=== PATIENT | female | born 1950 | race Caucasian/White ===

== ENCOUNTER → 2016-11-29 | Outpatient (CLI) | payer MEDICARE, BC ==
--- NOTE | 2016-11-29 15:35 | XR ---
EXAMINATION TYPE: XR chest 2V DATE OF EXAM: 11/29/2016 3:22 PM COMPARISON: 06/01/2016 HISTORY: 66-year-old female costochondritis, painful respiration TECHNIQUE: Frontal and lateral views FINDINGS: The cardiomediastinal silhouette, aorta, and pulmonary vasculature are within normal limits. Similar strandy atelectasis at the left base. Otherwise, lungs and pleural spaces are clear. IMPRESSION: No acute cardiopulmonary process.
== END ==
LOC: RADXRMAIN 15:11
PROVIDERS: ATTEND Family Medicine
DX: M94.0 Chondrocostal junction syndrome [Tietze] (principal); R07.1 Chest pain on breathing
CPT/HCPCS: 71020

== ENCOUNTER → 2017-01-20 | Outpatient (CLI) | payer MEDICARE, BC ==
--- NOTE | 2017-01-20 11:40 | MM ---
Reason for exam: screening (asymptomatic). Last mammogram was performed 1 year and 1 month ago. History: Patient is postmenopausal. Physical Findings: A clinical breast exam by your physician is recommended on an annual basis and results should be correlated with mammographic findings. MG 3D Screening Mammo W/Cad Bilateral CC and MLO view(s) were taken. Prior study comparison: December 16, 2015, bilateral MG screening mammo w CAD. December 10, 2014, bilateral MG screening mammo w CAD. There are scattered fibroglandular densities. Finding: There are typically benign round calcifications in the left breast. There is no discrete abnormality. ASSESSMENT: Benign, BI-RAD 2 RECOMMENDATION: Routine screening mammogram of both breasts in 1 year.
== END | disposition home or self-care (01) ==
LOC: RADMAMWWP 07:29
PROVIDERS: ATTEND Family Medicine
DX: Z12.31 Encounter for screening mammogram for malignant neoplasm of breast (principal)
CPT/HCPCS: 77063; G0202

== ENCOUNTER 2017-06-30 19:48 | Emergency (ER) | payer MEDICARE, BC ==
[2017-06-30 20:04] VITALS: TEMP 97.4
[2017-06-30] MEDS ORDERED: SODIUM CHLORIDE 0.9% 1,000 ML IV STA (20:32)
[2017-06-30] MEDS ORDERED: SODIUM CHLORIDE 0.9% 500 ML IV STA (20:32)
--- NOTE | 2017-06-30 20:35 | ED ---
General Adult HPI - General Source: patient, RN notes reviewed Mode of arrival: ambulatory Limitations: no limitations <Dean Andrade - Last Filed: 06/30/17 20:33> <Colten Lira - Last Filed: 07/01/17 00:31> - General Chief complaint: Recheck/Abnormal Lab/Rx Stated complaint: Possible Med Reaction Time Seen by Provider: 06/30/17 20:31 - History of Present Illness Initial comments: This is a 67-year-old female who believes she may be having a reaction to a medication she took today. She took she took escitalopram have a 11 AM this morning she didn't have any bitemporal headache since then. Nausea generally just does not feel well she states her chest doesn't feel right she's had no palpitations no overt chest pain. No cough or other symptoms. She did recently have us infection of her sinusitis and urinary tract which she was treated for. No other complaints at this time this is a new medication she took 5 mg of this medication. (Dean Andrade) - Related Data Home Medications Medication Instructions Recorded Confirmed Levothyroxine Sodium [Synthroid] 25 mcg PO DAILY 06/01/16 06/30/17 Omeprazole 20 mg PO DAILY PRN 06/01/16 06/30/17 Multivitamins, Thera [Multivitamin 1 tab PO DAILY 08/03/16 06/30/17 (formulary)] Meclizine [Antivert] 12.5 mg PO TID PRN 06/30/17 06/30/17 Allergies Allergy/AdvReac Type Severity Reaction Status Date / Time amoxicillin [From Amoxil] Allergy Rash/Hives Verified 06/30/17 21:08 levofloxacin [From Levaquin] Allergy Rapid Verified 06/30/17 21:08 Heart Rate sulfamethoxazole Allergy Rash/Hives Verified 06/30/17 21:08 [From Bactrim] trimethoprim [From Bactrim] Allergy Rash/Hives Verified 06/30/17 21:08 Review of Systems ROS Other: All systems not noted in ROS Statement are negative. <Dean Andrade - Last Filed: 06/30/17 20:33> ROS Other: All systems not noted in ROS Statement are negative. <Colten Lira - Last Filed: 07/01/17 00:31> ROS Statement: Those systems with pertinent positive or pertinent negative responses have been documented in the HPI. Past Medical History Past Medical History: GERD/Reflux, Hyperlipidemia, Pneumonia, Thyroid Disorder Additional Past Medical History / Comment(s): DJD cervical spine, vertigo and cephalgia in past caused by cervical DJD, hiatal hernia, gastritis, UTI's, pleurisy, hemorrhoids. History of Any Multi-Drug Resistant Organisms: MRSA Date of last positivie culture/infection: 2011 MDRO Source:: abdomen Past Surgical History: Cholecystectomy, Hysterectomy, Tubal Ligation Additional Past Surgical History / Comment(s): EGD/colonoscopy Past Anesthesia/Blood Transfusion Reactions: Postoperative Nausea & Vomiting ( PONV) Past Psychological History: Anxiety, Depression Smoking Status: Never smoker Past Alcohol Use History: None Reported Past Drug Use History: None Reported - Past Family History Father Family Medical History: No Reported History Additional Family Medical History / Comment(s): Father lived to be 89yrs old. Mother Family Medical History: Respiratory Disorder Additional Family Medical History / Comment(s): Mother of pulmonary fibrosis at the age of 53yrs. <Dean Andrade - Last Filed: 06/30/17 20:33> General Exam Limitations: no limitations General appearance: alert, anxious Head exam: Present: atraumatic, normocephalic, normal inspection Eye exam: Present: normal appearance, PERRL, EOMI. Absent: scleral icterus, conjunctival injection, periorbital swelling ENT exam: Present: normal exam, mucous membranes moist Neck exam: Present: normal inspection. Absent: tenderness, meningismus, lymphadenopathy Respiratory exam: Present: normal lung sounds bilaterally. Absent: respiratory distress, wheezes, rales, rhonchi, stridor Cardiovascular Exam: Present: regular rate, normal rhythm, normal heart sounds. Absent: systolic murmur, diastolic murmur, rubs, gallop, clicks GI/Abdominal exam: Present: soft, normal bowel sounds. Absent: distended, tenderness, guarding, rebound, rigid Extremities exam: Present: normal inspection, full ROM, normal capillary refill. Absent: tenderness, pedal edema, joint swelling, calf tenderness Back exam: Present: normal inspection Neurological exam: Present: alert, oriented X3, CN II-XII intact Psychiatric exam: Present: normal affect, normal mood Skin exam: Present: warm, dry, intact, normal color. Absent: rash <Dean Andrade - Last Filed: 06/30/17 20:33> General appearance: alert, in no apparent distress, anxious Head exam: Present: atraumatic, normocephalic, normal inspection Eye exam: Present: normal appearance, PERRL, EOMI. Absent: scleral icterus, conjunctival injection, periorbital swelling ENT exam: Present: normal exam, mucous membranes moist Neck exam: Present: normal inspection. Absent: tenderness, meningismus, lymphadenopathy Respiratory exam: Present: normal lung sounds bilaterally. Absent: respiratory distress, wheezes, rales, rhonchi, stridor Cardiovascular Exam: Present: regular rate, normal rhythm, normal heart sounds. Absent: systolic murmur, diastolic murmur, rubs, gallop, clicks GI/Abdominal exam: Present: soft, normal bowel sounds. Absent: distended, tenderness, guarding, rebound, rigid Extremities exam: Present: normal inspection, full ROM, normal capillary refill. Absent: tenderness, pedal edema, joint swelling, calf tenderness Back exam: Present: normal inspection Neurological exam: Present: alert, oriented X3, CN II-XII intact Psychiatric exam: Present: normal affect, normal mood Skin exam: Present: warm, dry, intact, normal color. Absent: rash <Colten Lira - Last Filed: 07/01/17 00:31> - General Exam Comments Initial Comments: This a well-developed well-nourished awake alert anxious appearing female (Dean Andrade) Course <Dean Andrade - Last Filed: 06/30/17 20:33> <Colten Lira - Last Filed: 07/01/17 00:31> Vital Signs 06/30/17 19:58 Temperature 97.4 F L Pulse Rate 68 Respiratory 18 Rate Blood Pressure 147/74 O2 Sat by Pulse 97 Oximetry - Reevaluation(s) Reevaluation #1: 07/01/17 00:31 Spoke with patient and family regarding symptoms, this time patient feels comfortable going home, feels safe at home. Has no other complaints at this time (Colten Lira) EKG Findings - EKG Results: EKG: interpreted by ERMD, sinus rhythm (Sinus rhythm rate is 74. Interval 150 to QRS 86 daily since QTC 404/448 occasional unifocal PVCs. She does have this by history) <Dean Andrade - Last Filed: 06/30/17 20:33> Medical Decision Making <Dean Andrade - Last Filed: 06/30/17 20:33> - Lab Data Result diagrams: 06/30/17 20:49 06/30/17 20:49 <Colten Lria - Last Filed: 07/01/17 00:31> - Medical Decision Making 67 female to the ER with medication reaction, a recurrent reaction which is a retired patient takes medication. Patient does not chest without significant complaints or labwork is normal patient can be discharged home (Colten Lira) - Lab Data Lab Results 06/30/17 06/30/17 06/30/17 Range/Units 20:49 20:49 20:49 WBC 9.8 (3.8-10.6) k/uL RBC 4.30 (3.80-5.40) m/uL Hgb 13.0 (11.4-16.0) gm/dL Hct 39.7 (34.0-46.0) % MCV 92.5 (80.0-100.0) fL MCH 30.2 (25.0-35.0) pg MCHC 32.6 (31.0-37.0) g/dL RDW 12.9 (11.5-15.5) % Plt Count 250 (150-450) k/uL Neutrophils % 78 % Lymphocytes % 15 % Monocytes % 5 % Eosinophils % 1 % Basophils % 0 % Neutrophils # 7.6 (1.3-7.7) k/uL Lymphocytes # 1.4 (1.0-4.8) k/uL Monocytes # 0.5 (0-1.0) k/uL Eosinophils # 0.1 (0-0.7) k/uL Basophils # 0.0 (0-0.2) k/uL Sodium 139 (137-145) mmol/L Potassium 4.2 (3.5-5.1) mmol/L Chloride 107 (98-107) mmol/L Carbon Dioxide 24 (22-30) mmol/L Anion Gap 8 mmol/L BUN 14 (7-17) mg/dL Creatinine 0.79 (0.52-1.04) mg/dL Est GFR (MDRD) Af Amer >60 (>60 ml/min/1.73 sqM) Est GFR (MDRD) Non-Af >60 (>60 ml/min/1.73 sqM) Glucose 124 H (74-99) mg/dL Calcium 9.9 (8.4-10.2) mg/dL Magnesium 2.0 (1.6-2.3) mg/dL Total Bilirubin 0.3 (0.2-1.3) mg/dL AST 19 (14-36) U/L ALT 24 (9-52) U/L Alkaline Phosphatase 66 (38-126) U/L Total Creatine Kinase 65 (30-135) U/L CK-MB (CK-2) 0.5 (0.0-2.4) ng/mL CK-MB (CK-2) Rel Index 0.8 Total Protein 7.3 (6.3-8.2) g/dL Albumin 4.1 (3.5-5.0) g/dL Disposition <Dean Andrade - Last Filed: 06/30/17 20:33> <Colten Lira - Last Filed: 07/01/17 00:31> Clinical Impression: Weakness, Medication reaction Disposition: HOME SELF-CARE Condition: Good Instructions: Escitalopram (By mouth) Referrals: Dary Baxter MD [Primary Care Provider] - 1-2 days
[2017-06-30 20:59] LABS: Basophils % (A) 0 %; CHCM 33.6; Eosinophils # (A) 0.1 k/uL (0-0.7); Eosinophils % (A) 1 %; HCT 39.7 % (34.0-46.0); HDW 2.17; Luc # (Auto) 0.08; Luc % (Auto) 1; Lymphocytes # (A) 1.4 k/uL (1.0-4.8); Lymphocytes % (A) 15 %; MCH 30.2 pg (25.0-35.0); MCHC 32.6 g/dL (31.0-37.0); MCV 92.5 fL (80.0-100.0); Mean Platelet Volume 8.3; Monocytes # (A) 0.5 k/uL (0-1.0); Monocytes % (A) 5 %; Neutrophils # (A) 7.6 k/uL (1.3-7.7); Neutrophils % (A) 78 %; RDW 12.9 % (11.5-15.5); WBC 9.8 k/uL (3.8-10.6)
[2017-06-30 21:13] LABS: ALT 24 U/L (9-52); AST 19 U/L (14-36); Alkaline Phosphatase 66 U/L (38-126); Anion Gap 8 mmol/L; Blood Urea Nitrogen 14 mg/dL (7-17); Calcium 9.9 mg/dL (8.4-10.2); Carbon Dioxide 24 mmol/L (22-30); Chloride 107 mmol/L (98-107); Glucose 124 mg/dL (74-99); Non-African American GFR(MDRD) >60 (>60 ml/min/1.73 sqM); Potassium 4.2 mmol/L (3.5-5.1); Sodium 139 mmol/L (137-145); Total Bilirubin 0.3 mg/dL (0.2-1.3); Total Protein 7.3 g/dL (6.3-8.2)
--- NOTE | 2017-06-30 21:20 | XR ---
EXAMINATION TYPE: XR chest 2V DATE OF EXAM: 06/30/2017 HISTORY: cough. REFERENCE: Previous study dated 11/29/2016. FINDINGS: There is some scarring at the left lung base. The lungs are otherwise clear. Pleural space are clear. Heart size is upper limits of normal. IMPRESSION: NO ACUTE INTRATHORACIC ABNORMALITY.
[2017-06-30 21:29] LABS: Creatine Kinase MB 0.5 ng/mL (0.0-2.4)
[2017-07-01] MEDS ORDERED: SODIUM CHLORIDE 0.9% 1,000 ML IV STA (00:19)
[2017-07-01 01:17] VITALS: BP 142/78; PULSE 87; RESP 16
== END 2017-07-01 01:17 | disposition home or self-care (01) ==
LOC: EC 19:48
DX: R53.1 Weakness (principal); T43.295A Adverse effect of other antidepressants, initial encounter; R11.0 Nausea; K21.9 Gastro-esophageal reflux disease without esophagitis; E07.9 Disorder of thyroid, unspecified; Z79.899 Other long term (current) drug therapy; Z88.0 Allergy status to penicillin; Z88.1 Allergy status to other antibiotic agents
CPT/HCPCS: 36415; 71020; 80053; 82550; 82553; 83735; 85025; 93005; 96360; 96361; 99283

== ENCOUNTER 2017-09-05 11:08 | Observation (INO) | payer MEDICARE, BC ==
[2017-09-05] MEDS ORDERED: SODIUM CHLORIDE 0.9% 1,000 ML IV STA ×2 (12:06)
[2017-09-05] MEDS ORDERED: MAG HYDROX/AL HYDROX/SIMETH 30 ML, HYOSCYAMINE ELIXIR 10 ML, CIMETIDINE HCL 300 MG PO STA ×3 (12:07)
[2017-09-05] MEDS ORDERED: KETOROLAC 30 MG/ML 1 ML VIAL IVP STA (12:07)
[2017-09-05 12:20] LABS: Basophils % (A) 1 %; Eosinophils # (A) 0.2 k/uL (0-0.7); Eosinophils % (A) 4 %; HCT 39.4 % (34.0-46.0); HGB 13.2 gm/dL (11.4-16.0); Lymphocytes # (A) 1.6 k/uL (1.0-4.8); Lymphocytes % (A) 25 %; MCH 30.9 pg (25.0-35.0); MCHC 33.6 g/dL (31.0-37.0); MCV 91.9 fL (80.0-100.0); Mean Platelet Volume 8.2; Monocytes # (A) 0.4 k/uL (0-1.0); Monocytes % (A) 6 %; Neutrophils % (A) 63 %; Platelet Count 268 k/uL (150-450); RBC 4.29 m/uL (3.80-5.40); RDW 12.2 % (11.5-15.5); WBC 6.3 k/uL (3.8-10.6)
[2017-09-05 12:26] LABS: Appearance,Urine Clear (Clear); Bilirubin,Urine Negative (Negative); Blood,Urine Negative (Negative); Color,Urine Yellow; Glucose,Urine (UA) Negative (Negative); Ketones,Urine 1+ (Negative); Leukocyte Esterase,Urine Small (Negative); Mucus,Urine Occasional /hpf; Nitrite,Urine Negative (Negative); Protein,Urine Negative (Negative); RBC,Urine 1 /hpf (0-5); Specific Gravity,Urine 1.013 (1.001-1.035); Squamous Epithelial Cell,Urine <1 /hpf (0-4); Urobilinogen,Urine <2.0 mg/dL (<2.0); WBC,Urine 8 /hpf (0-5)
--- NOTE | 2017-09-05 12:30 | ED ---
Abdominal Pain HPI - General Chief Complaint: Abdominal Pain Stated Complaint: Abd Pain Time Seen by Provider: 09/05/17 11:08 Source: patient, family, EMS, RN notes reviewed Mode of arrival: EMS Limitations: no limitations - History of Present Illness Initial Comments: This is a 67-year-old female history of a cholecystectomy in 2010 who states she 's been having intermittent episodes of epigastric and right upper quadrant pain since June of this past year. He states because of the pain she's had decreased oral intake. She states food does make it worse. She has no personal history of ulcers but does have a family history. She denies any cough. She does have a history of urinary tract infections. She has no prior history of kidney stones. No other abdominal surgeries. She denies any overt fevers chills or sweats. Per barrel builder report the abdominal pains got worse over last 2 weeks she's had nausea no vomiting no diarrhea. Patient states the pain at times will radiate from the epigastrium to the right upper quadrant and down the abdomen. She also states she has no prior history of diverticulosis. She described the pain is burning mid epigastric pain. She currently is got mild pain. It does get moderate at times. MD Complaint: abdominal pain - Related Data Home Medications Medication Instructions Recorded Confirmed Levothyroxine Sodium [Synthroid] 25 mcg PO DAILY 06/01/16 09/05/17 Omeprazole 20 mg PO DAILY PRN 06/01/16 09/05/17 Multivitamins, Thera [Multivitamin 1 tab PO DAILY 08/03/16 09/05/17 (formulary)] Atorvastatin [Lipitor] 20 mg PO HS 09/05/17 09/05/17 Meclizine [Antivert] 25 mg PO TID PRN 09/05/17 09/05/17 Lewis-3 Fatty Acids/Fish Oil [Fish 1 cap PO DAILY 09/05/17 09/05/17 Oil 1,000 mg Softgel] Allergies Allergy/AdvReac Type Severity Reaction Status Date / Time amoxicillin [From Amoxil] Allergy Rash/Hives Verified 09/05/17 11:24 levofloxacin [From Levaquin] Allergy Rapid Verified 09/05/17 11:24 Heart Rate sulfamethoxazole Allergy Rash/Hives Verified 09/05/17 11:24 [From Bactrim] trimethoprim [From Bactrim] Allergy Rash/Hives Verified 09/05/17 11:24 Review of Systems ROS Statement: Those systems with pertinent positive or pertinent negative responses have been documented in the HPI. ROS Other: All systems not noted in ROS Statement are negative. Past Medical History Past Medical History: GERD/Reflux, Hyperlipidemia, Pneumonia, Thyroid Disorder Additional Past Medical History / Comment(s): DJD cervical spine, vertigo and cephalgia in past caused by cervical DJD, hiatal hernia, gastritis, UTI's, pleurisy, hemorrhoids. History of Any Multi-Drug Resistant Organisms: MRSA Date of last positivie culture/infection: 2011 MDRO Source:: abdomen Past Surgical History: Cholecystectomy, Hysterectomy, Tubal Ligation Additional Past Surgical History / Comment(s): EGD/colonoscopy Past Anesthesia/Blood Transfusion Reactions: Postoperative Nausea & Vomiting ( PONV) Past Psychological History: Anxiety, Depression Smoking Status: Never smoker Past Alcohol Use History: None Reported Past Drug Use History: None Reported - Past Family History Father Family Medical History: No Reported History Additional Family Medical History / Comment(s): Father lived to be 89yrs old. Mother Family Medical History: Respiratory Disorder Additional Family Medical History / Comment(s): Mother of pulmonary fibrosis at the age of 53yrs. General Exam - General Exam Comments Initial Comments: Is a well-developed well-nourished awake alert oriented 3 female Limitations: no limitations General appearance: alert, anxious Head exam: Present: atraumatic, normocephalic, normal inspection Eye exam: Present: normal appearance, PERRL, EOMI. Absent: scleral icterus, conjunctival injection, periorbital swelling ENT exam: Present: normal exam, mucous membranes moist Neck exam: Present: normal inspection. Absent: tenderness, meningismus, lymphadenopathy Respiratory exam: Present: normal lung sounds bilaterally. Absent: respiratory distress, wheezes, rales, rhonchi, stridor Cardiovascular Exam: Present: regular rate, normal rhythm, normal heart sounds. Absent: systolic murmur, diastolic murmur, rubs, gallop, clicks GI/Abdominal exam: Present: soft, tenderness (Epigastric tenderness palpation no guarding rebound masses or bruits), normal bowel sounds. Absent: distended, guarding, rebound, rigid Extremities exam: Present: normal inspection, full ROM, normal capillary refill. Absent: tenderness, pedal edema, joint swelling, calf tenderness Back exam: Present: normal inspection Neurological exam: Present: alert, oriented X3, CN II-XII intact Psychiatric exam: Present: normal affect, normal mood Skin exam: Present: warm, dry, intact, normal color. Absent: rash Course Vital Signs 09/05/17 09/05/17 11:11 12:23 Temperature 98.0 F Pulse Rate 86 97 Respiratory 18 18 Rate Blood Pressure 169/85 135/76 O2 Sat by Pulse 95 98 Oximetry - Reevaluation(s) Reevaluation #1: 09/05/17 13:36 Patient does say she gets some relief with the medication given for her stomach. She does still feel somewhat lightheaded however. She remains very anxious. Reevaluation #2: 09/05/17 14:45 The patient persists in having burning right upper quadrant pain is not reproducible on palpation. Thus far EKG and lab work is demonstrating no acute processes. I did discuss the final of nitroglycerin with the patient she has refused to have that at this time area she does still complain of the mild right upper quadrant pain also a headache and some dizziness. She did receive IV fluids was just seemed to help somewhat a GI cocktail did seem to help also. At this time the exact etiology is undetermined. Patient does however appear to be very anxious and does admit this also. Medical Decision Making - Medical Decision Making I did discuss the case with Dr. Contreras patient will be admitted for further evaluation. - Lab Data Result diagrams: 09/05/17 11:23 09/05/17 11:23 Lab Results 09/05/17 09/05/17 09/05/17 Range/Units 11:23 11:23 11:23 WBC 6.3 (3.8-10.6) k/uL RBC 4.29 (3.80-5.40) m/uL Hgb 13.2 (11.4-16.0) gm/dL Hct 39.4 (34.0-46.0) % MCV 91.9 (80.0-100.0) fL MCH 30.9 (25.0-35.0) pg MCHC 33.6 (31.0-37.0) g/dL RDW 12.2 (11.5-15.5) % Plt Count 268 (150-450) k/uL Neutrophils % 63 % Lymphocytes % 25 % Monocytes % 6 % Eosinophils % 4 % Basophils % 1 % Neutrophils # 4.0 (1.3-7.7) k/uL Lymphocytes # 1.6 (1.0-4.8) k/uL Monocytes # 0.4 (0-1.0) k/uL Eosinophils # 0.2 (0-0.7) k/uL Basophils # 0.0 (0-0.2) k/uL Sodium 139 (137-145) mmol/L Potassium 4.2 (3.5-5.1) mmol/L Chloride 106 (98-107) mmol/L Carbon Dioxide 21 L (22-30) mmol/L Anion Gap 12 mmol/L BUN 14 (7-17) mg/dL Creatinine 0.80 (0.52-1.04) mg/dL Est GFR (MDRD) Af Amer >60 (>60 ml/min/1.73 sqM) Est GFR (MDRD) Non-Af >60 (>60 ml/min/1.73 sqM) Glucose 95 (74-99) mg/dL Calcium 9.7 (8.4-10.2) mg/dL Magnesium 1.9 (1.6-2.3) mg/dL Total Bilirubin 0.4 (0.2-1.3) mg/dL AST 25 (14-36) U/L ALT 26 (9-52) U/L Alkaline Phosphatase 67 (38-126) U/L Total Creatine Kinase 58 (30-135) U/L CK-MB (CK-2) <0.2 (0.0-2.4) ng/mL CK-MB (CK-2) Rel Index Troponin I <0.012 (0.000-0.034) ng/mL Total Protein 7.2 (6.3-8.2) g/dL Albumin 4.3 (3.5-5.0) g/dL Amylase 101 (30-110) U/L Lipase 109 (23-300) U/L Urine Color Urine Appearance (Clear) Urine pH (5.0-8.0) Ur Specific [place] (1.001-1.035) Urine Protein (Negative) Urine Glucose (UA) (Negative) Urine Ketones (Negative) Urine Blood (Negative) Urine Nitrite (Negative) Urine Bilirubin (Negative) Urine Urobilinogen (<2.0) mg/dL Ur Leukocyte Esterase (Negative) Urine RBC (0-5) /hpf Urine WBC (0-5) /hpf Ur Squamous Epith Cells (0-4) /hpf Urine Mucus (None) /hpf 09/05/17 Range/Units 11:23 WBC (3.8-10.6) k/uL RBC (3.80-5.40) m/uL Hgb (11.4-16.0) gm/dL Hct (34.0-46.0) % MCV (80.0-100.0) fL MCH (25.0-35.0) pg MCHC (31.0-37.0) g/dL RDW (11.5-15.5) % Plt Count (150-450) k/uL Neutrophils % % Lymphocytes % % Monocytes % % Eosinophils % % Basophils % % Neutrophils # (1.3-7.7) k/uL Lymphocytes # (1.0-4.8) k/uL Monocytes # (0-1.0) k/uL Eosinophils # (0-0.7) k/uL Basophils # (0-0.2) k/uL Sodium (137-145) mmol/L Potassium (3.5-5.1) mmol/L Chloride (98-107) mmol/L Carbon Dioxide (22-30) mmol/L Anion Gap mmol/L BUN (7-17) mg/dL Creatinine (0.52-1.04) mg/dL Est GFR (MDRD) Af Amer (>60 ml/min/1.73 sqM) Est GFR (MDRD) Non-Af (>60 ml/min/1.73 sqM) Glucose (74-99) mg/dL Calcium (8.4-10.2) mg/dL Magnesium (1.6-2.3) mg/dL Total Bilirubin (0.2-1.3) mg/dL AST (14-36) U/L ALT (9-52) U/L Alkaline Phosphatase (38-126) U/L Total Creatine Kinase (30-135) U/L CK-MB (CK-2) (0.0-2.4) ng/mL CK-MB (CK-2) Rel Index Troponin I (0.000-0.034) ng/mL Total Protein (6.3-8.2) g/dL Albumin (3.5-5.0) g/dL Amylase (30-110) U/L Lipase (23-300) U/L Urine Color Yellow Urine Appearance Clear (Clear) Urine pH 5.0 (5.0-8.0) Ur Specific [place] 1.013 (1.001-1.035) Urine Protein Negative (Negative) Urine Glucose (UA) Negative (Negative) Urine Ketones 1+ H (Negative) Urine Blood Negative (Negative) Urine Nitrite Negative (Negative) Urine Bilirubin Negative (Negative) Urine Urobilinogen <2.0 (<2.0) mg/dL Ur Leukocyte Esterase Small H (Negative) Urine RBC 1 (0-5) /hpf Urine WBC 8 H (0-5) /hpf Ur Squamous Epith Cells <1 (0-4) /hpf Urine Mucus Occasional H (None) /hpf - EKG Data -: EKG Interpreted by Me EKG shows normal: sinus rhythm, axis, intervals, QRS complexes, ST-T waves (EKG done at the time of evaluation showed a normal sinus rhythm of 82. Interval 148 QRS duration 86 QT since QTC of/[address]-T wave changes.) Rate: normal - Radiology Data Radiology results: report reviewed (I did review the imaging and report no acute findings.), image reviewed Disposition Clinical Impression: Atypical chest pain, Abdominal pain Disposition: ADMITTED IP TO THIS [facility] Condition: Stable Referrals: Dary Baxter MD [Primary Care Provider] - 1-2 days
[2017-09-05 12:32] LABS: ALT 26 U/L (9-52); AST 25 U/L (14-36); Albumin 4.3 g/dL (3.5-5.0); Alkaline Phosphatase 67 U/L (38-126); Amylase 101 U/L (30-110); Anion Gap 12 mmol/L; Blood Urea Nitrogen 14 mg/dL (7-17); Calcium 9.7 mg/dL (8.4-10.2); Carbon Dioxide 21 mmol/L (22-30); Chloride 106 mmol/L (98-107); Glucose 95 mg/dL (74-99); Lipase 109 U/L (23-300); Magnesium 1.9 mg/dL (1.6-2.3); Potassium 4.2 mmol/L (3.5-5.1); Sodium 139 mmol/L (137-145); Total Bilirubin 0.4 mg/dL (0.2-1.3); Total Protein 7.2 g/dL (6.3-8.2)
--- NOTE | 2017-09-05 12:42 | XR ---
EXAMINATION TYPE: XR chest 2V DATE OF EXAM: 09/05/2017 COMPARISON: 06/30/2017 HISTORY: Shortness of breath TECHNIQUE: Frontal and lateral views of the chest are obtained. FINDINGS: Scattered senescent parenchymal changes noted. Hyperinflation compatible with COPD. No evidence for infiltrate. No evidence for atelectasis. Heart size is stable. Mediastinal structures are stable and grossly unremarkable. No evidence for hilar prominence. Degenerative changes dorsal spine. IMPRESSION: 1. No evidence for acute pulmonary disease.
--- NOTE | 2017-09-05 12:43 | XR ---
EXAMINATION TYPE: XR KUB DATE OF EXAM: 09/05/2017 COMPARISON: NONE HISTORY: Pain TECHNIQUE: Single supine KUB image of the abdomen is obtained FINDINGS: Small bowel demonstrates no evidence for dilatation or air fluid levels. Gas and fecal material is seen in non-distended colon. No convincing evidence for pneumoperitoneum. No unusual calcifications. The lung bases are clear. The osseous structures are intact. IMPRESSION: 1. Overall nonobstructive bowel gas pattern.
[2017-09-05 12:51] LABS: Creatine Kinase 58 U/L (30-135)
[2017-09-05 13:04] LABS: Creatine Kinase MB <0.2 ng/mL (0.0-2.4); Troponin I <0.012 ng/mL (0.000-0.034)
[2017-09-05] MEDS ORDERED: FAMOTIDINE 20 MG/2 ML VIAL IV STA (13:36)
[2017-09-05] MEDS ORDERED: ACETAMINOPHEN TAB 325 MG TAB PO PRN (14:48)
[2017-09-05] MEDS ORDERED: NALOXONE 0.4 MG/ML 1 ML VIAL IV PRN (14:48)
[2017-09-05] MEDS ORDERED: PANTOPRAZOLE 40 MG TABLET PO PRN (14:52)
[2017-09-05] MEDS ORDERED: MECLIZINE 25 MG TAB PO PRN (14:52)
[2017-09-05] MEDS ORDERED: SODIUM CHLORIDE 0.9% 1,000 ML IV SCH (15:00)
[2017-09-05] MEDS ORDERED: MELATONIN 3 MG TABLET PO PRN (15:38)
[2017-09-05] MEDS ORDERED: MORPHINE SULFATE 2 MG/ML SYRINGE IV PRN (15:38)
[2017-09-05] MEDS ORDERED: ONDANSETRON 4 MG/2 ML VIAL IVP PRN (15:38)
[2017-09-05] MEDS ORDERED: RX INFO: IV CONTRAST WAS GIVEN 1 EACH MISC MISCELLANE PRN (15:42)
--- NOTE | 2017-09-05 16:01 | P.HPIM ---
History of Present Illness H&P Date: 09/05/17 Chief Complaint: abdominal pain Patient is a 67-year-old female with a past medical history of hypothyroidism, GERD, vertigo, dyslipidemia, and prior peptic ulcer who presented to the emergency department with right upper quadrant and chest pain. In the ER she underwent an extensive evaluation. Her initial troponin, vital signs, and EKG were within normal limits. Initial laboratory analysis was unremarkable. Urine was negative. She was given a GI cocktail which seemed to help relieve the epigastric pain but she still had some pain in her right lower quadrant. She was also given a dose of IV Pepcid, Toradol, and normal saline. Per the ED physician she had + orthostatic vitals after 1L of fluid. She did not have resolution of her pain and there was concern for possible cardiac etiology and therefore she was requested to be admitted under observation. Patient seen and examined at bedside. She reports that she's having intermittent abdominal pain since June 2017 during this period it has started and stopped 2 other times. This time it started ever weeks ago. She describes the pain as an epigastric burning that radiates to her right upper quadrant and right lower quadrant, it is intermittent. She states that is worse with eating and better without eating. She reports having a peptic ulcer several years ago she believes over 10. This is been associated with nausea for the last 2 weeks but no vomiting. Her appetite has been low. She states she has been not eating much and therefore has not had a good bowel movement in 2 weeks. She reports taking Tylenol for the pain which seemed to relieve it. This is also associated with generalized body aches. She reports increased anxiety due to several family members health issues. Today she started having some chest heaviness and feeling winded with thinking about every one with cancer. She also felt presyncopal yesterday at [facility] when discovering another person she knows has cancer. She also complains of a headache which she states is not unusual for her. She believes that she has had some weight loss. She reports that she has overall felt fatigued. She is being another appointment with Dr. Baxter but felt too sick to attend, and she had an appointment for this coming up . She has not had a colonoscopy in over 10 years. She states that she was told 26 years ago she had the start of a hiatal hernia. She denies any blood in her stools. She has otherwise been her normal self. She denies any recent cough, cold, fever, flu, or dysuria. 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 History of Any Multi-Drug Resistant Organisms: MRSA Date of last positivie culture/infection: 2011 MDRO Source:: abdomen Past Surgical History: Cholecystectomy, Hysterectomy, Tubal Ligation Additional Past Surgical History / Comment(s): EGD/colonoscopy Past Anesthesia/Blood Transfusion Reactions: Postoperative Nausea & Vomiting ( PONV) Past Psychological History: Anxiety, Depression Smoking Status: Never smoker Past Alcohol Use History: None Reported Past Drug Use History: None Reported Additional History: Lives alone, no assistive devices - Past Family History Father Family Medical History: No Reported History Additional Family Medical History / Comment(s): Father lived to be 89yrs old. Mother Family Medical History: Respiratory Disorder Additional Family Medical History / Comment(s): Mother of pulmonary fibrosis at the age of 53yrs. Brother(s) Additional Family Medical History / Comment(s): pulmonry fibrosis s/p double lung transplant Medications and Allergies Home Medications Medication Instructions Recorded Confirmed Type Levothyroxine Sodium [Synthroid] 25 mcg PO DAILY 06/01/16 09/05/17 History Omeprazole 20 mg PO DAILY PRN 06/01/16 09/05/17 History Multivitamins, Thera [Multivitamin 1 tab PO DAILY 08/03/16 09/05/17 History (formulary)] Atorvastatin [Lipitor] 20 mg PO HS 09/05/17 09/05/17 History Meclizine [Antivert] 25 mg PO TID PRN 09/05/17 09/05/17 History [place]-3 Fatty Acids/Fish Oil [Fish 1 cap PO DAILY 09/05/17 09/05/17 History Oil 1,000 mg Softgel] Allergies Allergy/AdvReac Type Severity Reaction Status Date / Time amoxicillin [From Amoxil] Allergy Rash/Hives Verified 09/05/17 11:24 levofloxacin [From Levaquin] Allergy Rapid Verified 09/05/17 11:24 Heart Rate sulfamethoxazole Allergy Rash/Hives Verified 09/05/17 11:24 [From Bactrim] trimethoprim [From Bactrim] Allergy Rash/Hives Verified 09/05/17 11:24 Physical Exam Osteopathic Statement: *. No significant issues noted on an osteopathic structural exam other than those noted in the History and Physical/Consult. Vitals: Vital Signs Temp Pulse Pulse Pulse Pulse Resp BP 09/05/17 14:44 78 89 81 09/05/17 12:23 97 18 135/76 09/05/17 11:11 98.0 F 86 18 169/85 BP BP BP Pulse Ox 09/05/17 14:44 149/64 126/60 166/75 09/05/17 12:23 98 09/05/17 11:11 95 Intake and Output 09/05/17 09/05/17 09/05/17 06:59 14:59 22:59 Other: Weight 67.132 kg Patient Weight 09/06/17 06:59 Weight 67.132 kg General: Ill appearing, no distress, appears at stated age, normal weight Derm: no unusual rashes/lesions no unusual ecchymoses, warm, dry Head: atraumatic, normocephalic, symmetric Eyes: EOMI, no lid lag, anicteric sclera, pupils equal round reactive to light ENT: Nose and ears atraumatic, no thrush, no pharyngeal erythema Neck: No thyromegaly, no cervical lymphadenopathy, trachea midline, supple Mouth: no lip lesion, mucus membranes moist Cardiovascular: S1S2 reg, no murmur, positive posterior tibial pulse bilateral, no edema, capillary refill less than 2 seconds Lungs: CTA bilateral, no rhonchi, no rales , no accessory muscle use Abdominal: soft, tender to palpation epigastric, no guarding, no appreciable organomegaly, normal bowel sounds Ext: no gross muscle atrophy, muscle strength 5 out of 5 in all 4 extremities grossly, no contractures, Neuro: CN II-XI grossly intact, light touch intact all 4 extremities, finger to nose within normal limits, Psych: Alert, oriented, anxious and tearful Results CBC & Chem 7: 09/05/17 11:23 09/05/17 11:23 Labs: Abnormal Lab Results - Last 24 Hours (Table) 09/05/17 09/05/17 Range/Units 11:23 11:23 Carbon Dioxide 21 L (22-30) mmol/L Urine Ketones 1+ H (Negative) Ur Leukocyte Esterase Small H (Negative) Urine WBC 8 H (0-5) /hpf Urine Mucus Occasional H (None) /hpf Comments: EKG is reviewed by me reveals normal sinus rhythm, normal axis, normal intervals , and no significant ST-T wave changes. Thrombosis Risk Factor Assmnt - DVT/VTE Prophylaxis DVT/VTE Prophylaxis: Low risk, early ambulation encouraged Assessment and Plan Assessment: Abdominal pain -Concern for gastritis/ulcer/H Pylori/ hiatal hernia/ mass/ doubt angina equilivant - protonix IV - GI consult - CT abdomen and pelvis - NPO after midnight for GI eval - Pain control - tele, serial troponin, ASA + Orthostatic vitals - IVF - repeat in AM Anxiety - continue counseling - prn xanax - outpatient eval with Dr Baxter for additional meds HLD - hold statin due to nausea. Hypothyroidism - check TSH - synthroid Chronic hiatal hernia cervical spine disease vertigo Headaches insomnia Surrogate decision-maker: Daughter- Marivel CODE STATUS:Full, organ donor DVT prophylaxis: SCDd Discussed with: Patient Anticipated discharge: 24- [address]: home A total of 65 minutes was spent on the care of this complex patient more than 50 % of the time was spent in counseling and care coordination.
[2017-09-05] MEDS: IOHEXOL 350 MG/ML 25 ML BOTTLE (ORAL USE) PO PRN ×2 (16:33→17:42)
[2017-09-05 17:29] LABS: Creatine Kinase 56 U/L (30-135)
[2017-09-05 17:42] LABS: Creatine Kinase MB 0.3 ng/mL (0.0-2.4); Troponin I <0.012 ng/mL (0.000-0.034)
[2017-09-05] MEDS: PANTOPRAZOLE 40 MG/10 ML VIAL IV SCH (18:04)
--- NOTE | 2017-09-05 21:28 | CT ---
EXAMINATION TYPE: CT abdomen pelvis w con DATE OF EXAM: 09/05/2017 COMPARISON: CT 10/07/2011 HISTORY: Abdominal pain. CT DLP: 720.9 mGycm Automated exposure control for dose reduction was used. TECHNIQUE: Helical acquisition of images was performed from the lung bases through the pelvis. CONTRAST: Performed with Oral Contrast and with IV Contrast, patient injected with 100 mL of Omnipaque 300. FINDINGS: LUNG BASES: No significant abnormality is appreciated. LIVER/GB: No significant abnormality is appreciated. PANCREAS: No significant abnormality is seen. SPLEEN: No significant abnormality is seen. ADRENALS: No significant abnormality is seen. KIDNEYS: No significant abnormality is seen. FREE AIR: No free air is visualized. RETROPERITONEAL ADENOPATHY: None visualized REPRODUCTIVE ORGANS: No significant abnormality is seen URINARY BLADDER: No significant abnormality is seen. PELVIC ADENOPATHY: None visualized. OSSEOUS STRUCTURES: No significant abnormality is seen. BOWEL: No significant abnormality is seen. VASCULATURE: Unremarkable. IMPRESSION: NO ACUTE PROCESS.
[2017-09-05] MEDS: HYDROcodone/APAP 5-325MG 1 EACH TAB PO PRN (21:41)
[2017-09-05] MEDS: ATORVASTATIN 20 MG TAB PO SCH (21:42)
[2017-09-05] MEDS: ALPRAZolam 0.25 MG TAB PO PRN (21:42)
[2017-09-06 01:11] LABS: Creatine Kinase 64 U/L (30-135)
[2017-09-06 01:23] LABS: Creatine Kinase MB 0.3 ng/mL (0.0-2.4); Troponin I <0.012 ng/mL (0.000-0.034)
[2017-09-06 05:27] LABS: Cholesterol 176 mg/dL (<200); HDL Cholesterol 45 mg/dL (40-60); LDL Cholesterol,Calculated 95 mg/dL (0-99); Triglycerides 178 mg/dL (<150)
[2017-09-06] MEDS: PANTOPRAZOLE 40 MG/10 ML VIAL IV SCH (08:58)
[2017-09-06] MEDS: LEVOTHYROXINE 25 MCG TAB PO SCH (08:58)
[2017-09-06] MEDS ORDERED: NON-FORMULARY DRUG (Omega-3 Fatty Acids/Fish Oil [Fish Oil 1,000 Mg Softgel] 1 CAP) PO SCH (09:00)
--- NOTE | 2017-09-06 09:46 | P.CONS ---
History of Present Illness - Reason for Consult Consult date: 09/06/17 Epigastric abdominal pain Requesting physician: Chely Snow - History of Present Illness 67-year-old female patient of Dr. Baxter with a past medical history of peptic ulcer disease approximately 40 years ago, cholecystectomy, GERD maintained on PPI for several years, hyperlipidemia, vertigo, anxiety, depression, cephalgia. Patient admitted with a 2 month history of persistent epigastric right upper quadrant discomfort without nausea. Denies hematemesis hematochezia melena fever or chills. No history of this type of pain. Pain is described as a burning sensation most in the right upper quadrant. No change in bowel habits. 4 pound weight loss over last week secondary to decreased appetite. No NSAIDs or alcohol. No recent EGD. Colonoscopy more than 10 years ago to her memory possible polyp removal and hemorrhoids. Patient is unsure of her cholecystectomy was secondary to gallstones or not. CT unremarkable findings to support presenting symptoms. Hemoglobin 13.2. White count 6.3. Platelet 268. LFTs within normal limits. Lipase 109. Hemoccult stool negative. Review of Systems Constitutional: Denies fever, chills, sweats, weight gain, or loss. HEENT: Negative for migraines, blurred vision or loss, earaches, drainage, tinnitus, oral mucosal lesions, dysphagia, or odynophagia. CARDIAC: Hyperlipidemia. Negative for chest pain, arrhythmias, or palpitation. RESPIRATORY: Negative for shortness of breath, hemoptysis, cough, or sputum production. GI: See HPI for pertinent findings. : Negative for hematuria, urgency, frequency, polyuria, or dysuria. GYNc: Negative vaginal discharge. MUSCULOSKELETAL: Negative for muscle aches, swelling, arthritis, and arthralgias. NEUROLOGIC: Negative for stroke or TIA. ENDOCRINE: Negative for thyroid problems. SKIN: MRSA. Negative for rash or itching. PSYCHIATRIC: Anxiety. Depression. Past Medical History Past Medical History: GERD/Reflux, Hyperlipidemia, Pneumonia, Thyroid Disorder Additional Past Medical History / Comment(s): DJD cervical spine, vertigo and cephalgia in past caused by cervical DJD, hiatal hernia, gastritis, UTI's, pleurisy, hemorrhoids. History of Any Multi-Drug Resistant Organisms: MRSA Year Discovered:: 2011 MDRO Source:: abdomen Past Surgical History: Cholecystectomy, Hysterectomy, Tubal Ligation Additional Past Surgical History / Comment(s): EGD/colonoscopy Past Anesthesia/Blood Transfusion Reactions: Postoperative Nausea & Vomiting ( PONV) Additional Past Anesthesia/Blood Transfusion Reaction / Comm: clausterphobia Past Psychological History: Anxiety, Depression Smoking Status: Never smoker Past Alcohol Use History: None Reported Past Drug Use History: None Reported - Past Family History Father Family Medical History: No Reported History Additional Family Medical History / Comment(s): Father lived to be 89yrs old. Mother Family Medical History: Respiratory Disorder Additional Family Medical History / Comment(s): Mother of pulmonary fibrosis at the age of 53yrs. Brother(s) Additional Family Medical History / Comment(s): pulmonry fibrosis s/p double lung transplant Medications and Allergies Home Medications Medication Instructions Recorded Confirmed Type Levothyroxine Sodium [Synthroid] 25 mcg PO DAILY 06/01/16 09/05/17 History Omeprazole 20 mg PO DAILY PRN 06/01/16 09/05/17 History Multivitamins, Thera [Multivitamin 1 tab PO DAILY 08/03/16 09/05/17 History (formulary)] Atorvastatin [Lipitor] 20 mg PO HS 09/05/17 09/05/17 History Meclizine [Antivert] 25 mg PO TID PRN 09/05/17 09/05/17 History [place]-3 Fatty Acids/Fish Oil [Fish 1 cap PO DAILY 09/05/17 09/05/17 History Oil 1,000 mg Softgel] Allergies Allergy/AdvReac Type Severity Reaction Status Date / Time amoxicillin [From Amoxil] Allergy Rash/Hives Verified 09/05/17 11:24 levofloxacin [From Levaquin] Allergy Rapid Verified 09/05/17 11:24 Heart Rate sulfamethoxazole Allergy Rash/Hives Verified 09/05/17 11:24 [From Bactrim] trimethoprim [From Bactrim] Allergy Rash/Hives Verified 09/05/17 11:24 Physical Exam Vitals: Vital Signs Temp Pulse Pulse Pulse Pulse Pulse Resp 09/06/17 07:54 98.6 F 59 L 16 09/06/17 04:00 97.9 F 60 18 09/06/17 00:00 97.9 F 60 18 09/05/17 20:00 18 09/05/17 19:33 98.0 F 71 18 09/05/17 16:49 97.9 F 78 16 09/05/17 15:45 98.7 F 74 18 09/05/17 14:44 78 89 81 09/05/17 12:23 97 18 09/05/17 11:11 98.0 F 86 18 BP BP BP BP BP Pulse Ox 09/06/17 07:54 116/61 95 09/06/17 04:00 101/59 93 L 09/06/17 00:00 107/59 94 L 09/05/17 20:00 09/05/17 19:33 132/77 95 09/05/17 16:49 165/75 09/05/17 15:45 137/72 98 09/05/17 14:44 149/64 126/60 166/75 09/05/17 12:23 135/76 98 09/05/17 11:11 169/85 95 Intake and Output 09/05/17 09/06/17 09/06/17 22:59 06:59 14:59 Intake Total 240 Balance 240 Intake: Oral 240 Other: Voiding Method Toilet Toilet Toilet # Voids 1 Weight 65.3 kg 65.3 kg General appearance: The patient is alert, oriented, in no acute distress. HET: Head is normocephalic and atraumatic. Pupils are equal and reactive. Oropharynx is clear without lesions. Neck: Supple without lymphadenopathy. Trachea midline. Heart: S1 S2. Regular rate and rhythm. Lungs: No crackles or wheezes are heard. Abdomen: Soft, midepigastric right upper quadrant tenderness, nondistended with bowel sounds. No peritoneal signs. No palpable organomegaly or masses. Extremities: Normal skin color and turgor. No cyanosis, rash, ulceration, clubbing, or edema. Radial and pedal pulses are 2/4 bilaterally. Neurological: No focal deficits. Strength and sensation are grossly intact. Results CBC & Chem 7: 09/05/17 11:23 09/05/17 11:23 Labs: Abnormal Lab Results - Last 24 Hours (Table) 09/05/17 09/05/17 09/05/17 Range/Units 11:23 11:23 11:23 Carbon Dioxide 21 L (22-30) mmol/L Triglycerides 178 H (<150) mg/dL Urine Ketones 1+ H (Negative) Ur Leukocyte Esterase Small H (Negative) Urine WBC 8 H (0-5) /hpf Urine Mucus Occasional H (None) /hpf CT scan - abdomen: report reviewed (Dr. Felix) Assessment and Plan (1) Epigastric pain Narrative/Plan: Possible peptic ulcer disease. Current Visit: Yes Status: Acute Code(s): R10.13 - EPIGASTRIC PAIN SNOMED Code(s): 69212250 (2) Right upper quadrant pain Current Visit: Yes Status: Acute Code(s): R10.11 - RIGHT UPPER QUADRANT PAIN SNOMED Code(s): 757140779 (3) History of cholecystectomy Current Visit: Yes Status: Resolved Code(s): Z98.890 - OTHER SPECIFIED POSTPROCEDURAL STATES; Z90.49 - ACQUIRED ABSENCE OF OTHER SPECIFIED PARTS OF DIGESTIVE TRACT SNOMED Code(s): 906791712 (4) History of gastroesophageal reflux (GERD) Current Visit: Yes Status: Chronic Code(s): Z87.19 - PERSONAL HISTORY OF OTHER DISEASES OF THE DIGESTIVE SYSTEM SNOMED Code(s): 31246560481490 (5) History of peptic ulcer disease Current Visit: Yes Status: Resolved Code(s): Z87.11 - PERSONAL HISTORY OF PEPTIC ULCER DISEASE SNOMED Code(s): 692671430 Plan: 1. Based on patient's presenting symptoms for the last 2 months will proceed with upper endoscopy/EGD today. Based on endoscopy findings further direction will be advised. PPI daily. Nothing by mouth except medications. We'll follow closely with you. The scientific recruiter has discussed the risks, benefits and alternative therapies for the above-mentioned procedure and for both sedation/analgesia as well as necessary blood product administration, if indicated, as they pertain to this patient. The patient has indicated understanding and acceptance of the risks and procedures discussed. Thank you for this kind referral and the opportunity to participate in the care of your patient. This consultation was discussed with Dr. Felix. The impression and plan of care have been directed as dictated.
[2017-09-06] MEDS ORDERED: MULTIVITAMINS, THERA 1 EACH TAB PO SCH (12:00)
[2017-09-06 13:50] VITALS: BMI 23.9
[2017-09-06] MEDS ORDERED: PROPOFOL 10 MG/ML 20 ML VIAL IV ONE (15:00)
[2017-09-06] MEDS ORDERED: LIDOCAINE 1% INJ 10MG/ML (20 ML MDV) ONE (15:00)
[2017-09-06] MEDS ORDERED: IV FLUID CONTINUATION 500 ML IV ONE (15:01)
--- NOTE | 2017-09-06 15:22 | P.PCN ---
Date of Procedure: 09/06/17 Procedure(s) Performed: Procedure: Esophagogastroduodenoscopy and biopsy. Preoperative diagnosis: Epigastric pain and history of peptic ulcer disease. Postoperative diagnosis: 1. Small sliding hiatal hernia with no obvious esophagitis or complicated reflux disease. 2. Mild antral gastritis. 3. Multiple biopsies obtained from the duodenum, antrum and esophagus. Preparation sedation: Were provided by anesthesia. Brief clinical history: The patient is a 67-year-old female with a past medical history of peptic ulcer disease approximately 40 years ago, cholecystectomy, GERD maintained on PPI for several years, hyperlipidemia, vertigo, anxiety, depression, cephalgia. She was admitted with a 2 month history of persistent epigastric and right upper quadrant discomfort without nausea. Denies hematemesis, hematochezia or melena. No fever or chills. Pain is described as a burning sensation mostly in the right upper quadrant. No change in bowel habits. Had 4 pound weight loss over last week secondary to decreased appetite. No NSAIDs or alcohol. No recent EGD. Colonoscopy more than 10 years ago to her memory possible polyp removal and hemorrhoids. CT unremarkable findings to support presenting symptoms. Hemoglobin 13.2. White count 6.3. Platelet 268. LFTs within normal limits. Lipase 109. Hemoccult stool negative. The details are summarized in the history and physical and dictated consultations and progress notes. This evaluation is to rule out peptic ulcer disease or other pathology. Procedure: With the patient on her left lateral decubitus position and after informed consent and adequate sedation, I passed the Olympus-GIF 160 video upper endoscope through the cricopharyngeus down the esophagus. GE junction was around 36 cm from the incisors and there was a small sliding hiatal hernia. The endoscope was then passed into the stomach which was insufflated with air and inspected in detail including the retroflex view in the cardia. There was some mild mottling and erythema in the antrum but no ulcers or erosions. Pyloric channel, duodenal bulb, post bulbar area and descending duodenum appeared limits. I obtained multiple biopsies from the duodenum, antrum and esophagus then the endoscope was withdrawn. The patient tolerated the procedure well. Plan: The patient was reassured. Will await biopsy results. Will allow clear liquid diet for the next immediate and advance diet as tolerated. Further plans based on her course and biopsy results
--- NOTE | 2017-09-06 15:31 | P.PN ---
Subjective Progress Note Date: 09/06/17 (late entry seen at 1030) Principal diagnosis: abdominal pain Patient is a 67-year-old female with a past medical history of hypothyroidism, GERD, vertigo, dyslipidemia, and prior peptic ulcer who presented to the emergency department with right upper quadrant and chest pain. In the ER she underwent an extensive evaluation. Her initial troponin, vital signs, and EKG were within normal limits. Initial laboratory analysis was unremarkable. Urine was negative. She was given a GI cocktail which seemed to help relieve the epigastric pain but she still had some pain in her right lower quadrant. She was also given a dose of IV Pepcid, Toradol, and normal saline. Per the ED physician she had + orthostatic vitals after 1L of fluid. She did not have resolution of her pain and there was concern for possible cardiac etiology and therefore she was requested to be admitted under observation. After further questioning it appears that the patient's pain was more from a gastric etiology. Her troponins were cycled and were negative. Her telemetry was monitored and was negative. She was started on twice a day IV Protonix. She underwent a CT abdomen and pelvis which was negative. She was seen by GI the next morning who recommended a scope. She will undergo EGD on 09/06. Patient seen and examined at bedside. Her abdomen is feeling much better. She is having much less pain. She states she slept well last night with her medications. She states the Xanax worked well for her pain. She denies any chest pain or shortness of breath. Objective - Vital Signs Vital signs: Vital Signs Temp 98.6 F 09/06/17 07:54 Pulse 59 L 09/06/17 07:54 Resp 16 09/06/17 07:54 BP 116/61 09/06/17 07:54 Pulse Ox 95 09/06/17 07:54 Intake & Output 09/05/17 09/06/17 09/06/17 18:59 06:59 18:59 Intake Total 240 Balance 240 Weight 65.3 kg 65.3 kg 65.3 kg Intake: Oral 240 Other: Voiding Method Toilet Toilet Toilet # Voids 1 - Exam General: non toxic, no distress, appears at stated age Derm: warm, dry Head: atraumatic, normocephalic, symmetric Eyes: EOMI, no lid lag, anicteric sclera Mouth: no lip lesion, mucus membranes moist Cardiovascular: S1S2 reg, no murmur, positive posterior tibial pulse bilateral, Lungs: CTA bilateral, no rhonchi, no rales , no accessory muscle use Abdominal: soft, +tender to palpation epigastic, no guarding, no appreciable organomegaly Ext: no gross muscle atrophy, no edema, no contractures Neuro: CN II-XI grossly intact, no focal neuro deficits Psych: Alert, oriented, anxious/tearful - Labs CBC & Chem 7: 09/05/17 11:23 09/05/17 11:23 Labs: Abnormal Lab Results - Last 24 Hours (Table) 09/05/17 Range/Units 11:23 Triglycerides 178 H (<150) mg/dL Assessment and Plan Assessment: Abdominal pain - protonix IV - GI recs appreciated EGD today - CT abdomen and pelvis negative - Pain control - tele- negative - serial troponin- negative - ASA - If does not improve then consider outpatient stress test. + Orthostatic vitals - IVF - repeat check pending Anxiety - continue counseling - prn xanax working well would like RX in discharge. D/W patient this can be used short term, but should not be used [facility]. - outpatient eval with Dr Baxter for additional meds HLD - hold statin due to nausea. Hypothyroidism - TSH normal - synthroid Chronic hiatal hernia cervical spine disease vertigo Headaches insomnia DVT prophylaxis: SCDd Discussed with: Patient, Mitzy cedeno, Nursing Anticipated discharge: late afternoon or tomorroe Anticipated discharge place: home A total of 25 minutes was spent on the care of this complex patient more than 50 % of the time was spent in counseling and care coordination.
[2017-09-06] MEDS: ALPRAZolam 0.25 MG TAB PO PRN (20:11)
[2017-09-06] MEDS: ATORVASTATIN 20 MG TAB PO SCH (20:11)
[2017-09-06] MEDS: HYDROcodone/APAP 5-325MG 1 EACH TAB PO PRN (22:10)
[2017-09-07] MEDS: LEVOTHYROXINE 25 MCG TAB PO SCH (06:40)
[2017-09-07 07:37] VITALS: RESP 16
[2017-09-07] MEDS: PANTOPRAZOLE 40 MG/10 ML VIAL IV SCH (08:09)
[2017-09-07 11:40] VITALS: BP 121/82; PULSE 67; TEMP 98.3
--- NOTE | 2017-09-07 12:45 | P.PN ---
Subjective Progress Note Date: 09/07/17 Principal diagnosis: Epigastric right upper quadrant abdominal pain Status post EGD yesterday with no evidence of Peptic ulcer disease. Still reports abdominal discomfort but not as severe. Afebrile. Objective - Vital Signs Vital signs: Vital Signs Temp 98.3 F 09/07/17 11:39 Pulse 67 09/07/17 11:39 Resp 16 09/07/17 11:39 BP 121/82 09/07/17 11:39 Pulse Ox 95 09/07/17 11:39 Intake & Output 09/06/17 09/07/17 09/07/17 18:59 06:59 18:59 Intake Total 200 Balance 200 Weight 65.3 kg 65.3 kg Intake: IV 200 Other: Voiding Method Toilet Toilet Toilet # Voids 1 1 1 - Exam General appearance: The patient is alert, oriented, in no acute distress. HET: Head is normocephalic and atraumatic. Pupils are equal and reactive. Oropharynx is clear without lesions. Neck: Supple without lymphadenopathy. Trachea midline. Heart: S1 S2. Regular rate and rhythm. Lungs: No crackles or wheezes are heard. Abdomen: Soft, mild tenderness right upper quadrant mid abdomen, nondistended with bowel sounds. No peritoneal signs. No palpable organomegaly or masses. Extremities: Normal skin color and turgor. No cyanosis, rash, ulceration, clubbing, or edema. Radial and pedal pulses are 2/4 bilaterally. Neurological: No focal deficits. Strength and sensation are grossly intact. - Labs CBC & Chem 7: 09/05/17 11:23 09/05/17 11:23 Assessment and Plan (1) Epigastric pain Narrative/Plan: Status post EGD with no evidence of complicated peptic ulcer disease. CT abdomen no acute process. Etiology of pain is unclear. Current Visit: Yes Status: Acute Code(s): R10.13 - EPIGASTRIC PAIN SNOMED Code(s): 92892872 (2) Right upper quadrant pain Current Visit: Yes Status: Acute Code(s): R10.11 - RIGHT UPPER QUADRANT PAIN SNOMED Code(s): 431710663 (3) History of cholecystectomy Current Visit: Yes Status: Resolved Code(s): Z98.890 - OTHER SPECIFIED POSTPROCEDURAL STATES; Z90.49 - ACQUIRED ABSENCE OF OTHER SPECIFIED PARTS OF DIGESTIVE TRACT SNOMED Code(s): 076956543 (4) History of gastroesophageal reflux (GERD) Current Visit: Yes Status: Chronic Code(s): Z87.19 - PERSONAL HISTORY OF OTHER DISEASES OF THE DIGESTIVE SYSTEM SNOMED Code(s): 20786121820537 (5) History of peptic ulcer disease Current Visit: Yes Status: Resolved Code(s): Z87.11 - PERSONAL HISTORY OF PEPTIC ULCER DISEASE SNOMED Code(s): 919245446 Plan: 1. Discharge per medicine. Patient was advised to follow-up in 1-2 weeks for reevaluation and discussion of outpatient colonoscopy. Recommend omeprazole 20 mg daily. Assessment and plan a care discussed with Dr. Felix.
--- NOTE | 2017-09-07 12:56 | P.DS ---
Providers Date of admission: 09/05/17 14:48 Expected date of discharge: 09/07/17 Attending physician: Chely Snow DO Primary care physician: Dary Baxter MD Hospital Course: 67-year-old female that presented with symptoms of pain. Patient was evaluated by GI who performed an EGD did not show any evidence of complicated peptic ulcer disease. Just some mild gastritis. Recommendations were patient to continue on omeprazole 20 mg daily patient will follow-up with GI in the next 2 weeks. Patient also recommended to follow-up with Dr. Baxter in 1 week Pertinent Studies: egd: mild gastritis, no eveidence of severe reflux Patient Condition at Discharge: Stable Plan - Discharge Summary Discharge Rx Participant: Yes New Discharge Prescriptions: Continue Omeprazole 20 mg PO DAILY PRN PRN Reason: GERD Levothyroxine Sodium [Synthroid] 25 mcg PO DAILY Multivitamins, Thera [Multivitamin (formulary)] 1 tab PO DAILY Meclizine [Antivert] 25 mg PO TID PRN PRN Reason: Vertigo [place]-3 Fatty Acids/Fish Oil [Fish Oil 1,000 mg Softgel] 1 cap PO DAILY Atorvastatin [Lipitor] 20 mg PO HS Discharge Medication List Levothyroxine Sodium [Synthroid] 25 mcg PO DAILY 06/01/16 [History] Omeprazole 20 mg PO DAILY PRN 06/01/16 [History] Multivitamins, Thera [Multivitamin (formulary)] 1 tab PO DAILY 08/03/16 [History ] Atorvastatin [Lipitor] 20 mg PO HS 09/05/17 [History] Meclizine [Antivert] 25 mg PO TID PRN 09/05/17 [History] [place]-3 Fatty Acids/Fish Oil [Fish Oil 1,000 mg Softgel] 1 cap PO DAILY [History] Follow up Appointment(s)/Referral(s): Reji Felix MD [STAFF PHYSICIAN] - 09/27/17 4:00 pm Dary Baxter MD [Primary Care Provider] - 1-2 days Discharge Disposition: HOME SELF-CARE
== END 2017-09-07 14:49 | disposition home or self-care (01) ==
LOC: EC 11:08 → 3OBS 14:48
PROVIDERS: ADMIT Internal Medicine; ATTEND Internal Medicine
DX: R10.11 Right upper quadrant pain (principal); R10.13 Epigastric pain; R42 Dizziness and giddiness; R51 Headache; Z90.49 Acquired absence of other specified parts of digestive tract; K29.60 Other gastritis without bleeding; K44.9 Diaphragmatic hernia without obstruction or gangrene; E03.9 Hypothyroidism, unspecified; E78.5 Hyperlipidemia, unspecified; R53.83 Other fatigue; G47.00 Insomnia, unspecified; K21.9 Gastro-esophageal reflux disease without esophagitis; Z87.440 Personal history of urinary (tract) infections; M47.9 Spondylosis, unspecified; F41.9 Anxiety disorder, unspecified; F32.9 Major depressive disorder, single episode, unspecified; Z79.899 Other long term (current) drug therapy; Z88.1 Allergy status to other antibiotic agents; Z88.2 Allergy status to sulfonamides; Z87.01 Personal history of pneumonia (recurrent); Z86.14 Personal history of Methicillin resistant Staphylococcus aureus infection; Z87.11 Personal history of peptic ulcer disease; Z63.79 Other stressful life events affecting family and household; R11.0 Nausea
CPT/HCPCS: 99285; 96374 ×2; 96375 ×3; 96361 ×4; 96376; 36415; 93005; 88305; 80061; 80053; 84443; 82150; 82550 ×2; 82553 ×2; 83690; 83735; 84484 ×2; 85025; 81001; 88342; 71046; 74018; 74177; 43239; G0378 ×3; J2405; J2001; J1885; Q9967; J2704; C9113 ×3

== ENCOUNTER → 2018-01-26 | Outpatient (CLI) | payer MEDICARE, BC ==
--- NOTE | 2018-01-26 09:37 | BD ---
EXAMINATION TYPE: Axial Bone Density DATE OF EXAM: 01/26/2018 COMPARISON: 01.07.2009 CLINICAL HISTORY: 67 YR OLD FEMALE.....ICD-10 CODE: R29.890 HT LOSS, Z13.820 SCREEN FOR OSTEOPOROSI S Height: 62.3 Weight: 138 FRAX RISK QUESTIONS: Secondary Osteoporosis: YES 3. Menopause before 45: YES AT 40 RISK FACTORS HISTORY OF: Family History of Osteoporosis: YES, HER GRANDMOTHER, NO FX Active: YES Diet low in dairy products/other sources of calcium: NO Postmenopausal woman: YES, COMPLETE HYST AT 40 YRS OLD Lost more than 2 inches in height since high school: YES, 65 INCHES IN HS MEDICATIONS: Thyroid Medications: YES, SYNTHROID How Lon+ YRS Additional Medications: ANTI-ANXIETY MED, BOOST DAILY, REFLUX MEDS, STATINS FOR CHOLESTEROL Additional History: NECK PAIN AND PROBLEMS, CHOLESTEROL, HYPERTENSION, VERTIGO EXAM MEASUREMENTS: Bone mineral densitometry was performed using the [employer]. Bone mineral density as measured about the Lumbar spine is: ----- L1-L4(G/cm2): 1.066 T Score Values are as follows: ----- L1: -1.0 ----- L2: -0.4 ----- L3: -1.0 ----- L4: -1.4 ----- L1-L4: -0.9 Bone mineral density has: Increased 3.4% since study of: 01.07.2009 Bone mineral density about the R hip (g/cm2): 0.829 Bone mineral density about the L hip (g/cm2): 0.861 T Score values are as follows: -----R Neck: -2.1 -----L Neck: -1.8 -----R Total: -1.4 -----L Total: -1.2 Bone mineral density has: Decreased -9.7% since study of: 01.07.2009 FRAX%s: THERE IS A 12.6% CHANCE OF A MAJOR OSTEOPOROTIC FX AND A 2.6% FOR HIP ......PROBABILITY OF FX IN 10 YRS TIME IMPRESSION: Osteopenia (T Score between -2.5 and -1) in both hips. There is slightly increased risk of fracture and the patient may be considered for treatment. Re-Screen 2-5 years. NOTE: T-SCORE=SD OF THE YOUNG ADULT MEAN.
== END | disposition home or self-care (01) ==
LOC: RADBDWWP 08:26
PROVIDERS: ATTEND Family Medicine
DX: Z13.820 Encounter for screening for osteoporosis (principal); M85.88 Other specified disorders of bone density and structure, other site
CPT/HCPCS: 77080

== ENCOUNTER → 2019-03-14 | Outpatient (CLI) | payer MEDICARE, BC ==
--- NOTE | 2019-03-15 15:22 | MM ---
Reason for exam: screening (asymptomatic). Last mammogram was performed 2 years and 2 months ago. History: Patient is postmenopausal. Physical Findings: A clinical breast exam by your physician is recommended on an annual basis and results should be correlated with mammographic findings. MG 3D Screening Mammo W/Cad Bilateral CC and MLO view(s) were taken. Prior study comparison: January 20, 2017, bilateral MG 3d screening mammo w/cad. December 16, 2015, bilateral MG screening mammo w CAD. There are scattered fibroglandular densities. Benign appearing calcifications in the left breast. No significant changes when compared with prior studies. ASSESSMENT: Benign, BI-RAD 2 RECOMMENDATION: Routine screening mammogram of both breasts in 1 year.
== END | disposition home or self-care (01) ==
LOC: RADMAMWWP 08:04
PROVIDERS: ATTEND Family Medicine
DX: Z12.31 Encounter for screening mammogram for malignant neoplasm of breast (principal)
CPT/HCPCS: 77063; 77067